=== PATIENT | female | born 2000 | race Caucasian/White ===

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

== ENCOUNTER 2018-10-07 15:59 | Emergency (ER) | payer BC ==
[2018-10-07 16:16] VITALS: BP 147/101
--- NOTE | 2018-10-07 16:22 | UC ---
Palpitation/Dysrhythmia HP - HPI Summary HPI Summary: !7 yr old WF brought in today by her friends d/t palpitations and vomiting blood. has noted palpitations for a "while", several months. becoming more freq and intense. duration ~ 10-15 secs and resolve. denies CP. not dizzy. + SOB. not sick. denies drugs, decongestents, adderall, diet pills or supplements. + caffeine. + smoker. denies fhx or personal h/o PE. 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 denies medical hx. Mom had similar sx when she was first diagnosed w/ thyroid condition. appetite has been decreased x a few wks, she cont to eat by force. -denies pregancy. LMP ~ 1mo ago. on ocp. skipped recent placebo. last sexually active 2 d ago. -denies NSAID use. no abd pain. no diarrhea. no recent cold or illness. -denies asthma. -she came in today at her friends' urging as she vomited blood, mucous like. denies coffee ground emesis. - History of Current Complaint Chief Complaint: UCRespiratory Stated Complaint: VOMITING BLOOD, FEELS LIKE HEART IS POUNDING Time Seen by Provider: 10/07/18 16:13 Hx Last Menstrual Period: didnt obtain Pain Intensity: 0 - Allergy/Home Medications Allergies/Adverse Reactions: Allergies Allergy/AdvReac Type Severity Reaction Status Date / Time No Known Allergies Allergy Verified 10/07/18 16:12 PMH/Surg Hx/FS Hx/Imm Hx Previously Healthy: Yes - Surgical History Surgical History: Yes Surgery Procedure, Year, and Place: Appendix - Family History Family History: mom - hyperthyroid - Social History Occupation: Student Alcohol Use: Occasionally Substance Use Type: None Smoking Status (MU): Current Every Day Smoker Type: Cigarettes Amount Used/How Often: 1 pack every 3 days Have You Smoked in the Last Year: Yes - Immunization History Most Recent Influenza Vaccination: no Review of Systems All Other Systems Reviewed And Are Negative: Yes Constitutional: Positive: Negative Skin: Positive: Negative Eyes: Positive: Negative ENT: Positive: Negative Respiratory: Positive: Shortness Of Breath Cardiovascular: Positive: Palpitations Gastrointestinal: Positive: Vomiting Genitourinary: Positive: Negative Motor: Positive: Negative Neurovascular: Positive: Negative Musculoskeletal: Positive: Negative Neurological: Positive: Negative Psychological: Positive: Negative Is Patient Immunocompromised?: No Physical Exam Triage Information Reviewed: Yes Appearance: Well-Appearing - well dressed and groomed., Ill-Appearing - very anxious appearing Vital Signs: Initial Vital Signs Temp 97.9 F 10/07/18 16:09 Pulse 87 10/07/18 16:09 Resp 16 10/07/18 16:09 BP 149/97 10/07/18 16:09 Pulse Ox 100 10/07/18 16:09 Vital Signs Reviewed: Yes Eye Exam: Normal ENT Exam: Normal ENT: Positive: Pharynx normal Dental Exam: Normal Neck exam: Normal Neck: Positive: Supple, Nontender, No Lymphadenopathy, Other: - no thyromegally Respiratory Exam: Normal Respiratory: Positive: Lungs clear - mild cough, Normal breath sounds, No respiratory distress, No accessory muscle use Cardiovascular Exam: Normal Cardiovascular: Positive: RRR, No Murmur, Pulses Normal, Brisk Capillary Refill Abdominal Exam: Normal Abdomen Description: Positive: Nontender, Soft. Negative: Distended, Guarding, Pulsatile Mass Bowel Sounds: Positive: Present Musculoskeletal Exam: Normal Neurological Exam: Normal Psychological Exam: Normal Skin Exam: Normal Palpitations Course/Dx - Course Course Of Treatment: EKG - NSR in 70s. no AV/IV changes. no ST/T changes. + artifact. left AC IV placed. NS 1 L started. BP 141/97, rpt 140s/101. speaking full sentenses throughout. -911 called immediately upon determination of sx. friends in waiting room entire OV - Differential Dx/Diagnosis Differential Diagnosis/HQI/PQRI: Hyperventilation, Medication Induced, Panic Disorder, Paroxymal SVT, Pulmonary Embolism Provider Diagnoses: palpitations, SOB, hematemesis Discharge - Sign-Out/Discharge Documenting (check all that apply): Patient Departure All imaging exams completed and their final reports reviewed: No Studies - Discharge Plan Condition: Fair Disposition: TRANS HIGHER LVL OF CARE FAC Referrals: Non Staff,Doctor [Primary Care Provider] - - Billing Disposition and Condition Condition: FAIR Disposition: Trans Higher Lvl of Care Fac
[2018-10-07] MEDS ORDERED: NS 0.9% 1000 ML* 1,000 ML IV ONE (19:31)
== END 2018-10-07 16:17 | disposition short-term general hospital (02) ==
LOC: UCCORT 15:59
DX: R00.2 Palpitations (principal); R06.02 Shortness of breath; K92.0 Hematemesis; F17.210 Nicotine dependence, cigarettes, uncomplicated
CPT/HCPCS: 93005; 99213; G0463